=== PATIENT | female | born 1970 | race Caucasian/White ===

== ENCOUNTER → 2018-08-16 | Outpatient (CLI) | payer MEDICARE, OTHER ==
[~2018-08-16] MED LIST: GADODIAMIDE 5 MMOL/10 ML VIAL 5 MMOL/10 ML ML IV ONE
== END | disposition home or self-care (01) ==
LOC: RAH 13:14
PROVIDERS: ATTEND Family Medicine
DX: D18.09 Hemangioma of other sites (principal); M50.221 Other cervical disc displacement at C4-C5 level
CPT/HCPCS: 70544; 70553; 72141; A9579

== ENCOUNTER 2023-04-07 14:39 | Emergency (ER) | payer OTHER ==
[~2023-04-07] VITALS: Ht 157.5 cm; Wt 56.7 kg
[2023-04-07 14:51] VITALS: BP 144/91; PULSE 61; RESP 18; O2SAT 98
[2023-04-07 17:13] LABS: HIV 1&2 ANTIBODY Non-Reactive (Negative); HIV-1 p24 Antigen Non-Reactive (Negative)
== END 2023-04-07 17:26 | disposition home or self-care (01) ==
LOC: EDH 14:39
DX: S69.82XA Other specified injuries of left wrist, hand and finger(s), initial encounter (principal); R06.02 Shortness of breath; I10 Essential (primary) hypertension; Z98.890 Other specified postprocedural states; Z77.21 Contact with and (suspected) exposure to potentially hazardous body fluids; W46.0XXA Contact with hypodermic needle, initial encounter; Y93.89 Activity, other specified; Y92.89 Other specified places as the place of occurrence of the external cause; Y99.8 Other external cause status
CPT/HCPCS: 36415; 86701; 86704; 86706; 87390; 87520